=== PATIENT | male | born 1940 | race African-American/Black ===

== ENCOUNTER 2020-10-04 17:13 | Inpatient (IN) | payer OTHER ==
[2020-10-04 17:19] VITALS: BMI 24.0
[2020-10-04] MEDS ORDERED: SODIUM CHLORIDE 1,000 ML IV SCH (17:30)
[2020-10-04 18:06] LABS: BASO % 1.1 % (0-2.0); EOS % 0.2 % (0-4.5); HEMATOCRIT 31.5 % (35.4-49); HEMOGLOBIN 10.2 GM/dl (11.7-16.9); LYMPH % 18.1 % (8-40); MCH 28.2 pg (25.7-33.7); MCHC 32.3 g/dl (32.0-35.9); MEAN CELL VOLUME 87.3 fl (80-96); MEAN PLT VOLUME 8.1 fl (7.5-11.1); MONO % 12.4 % (3.8-10.2); NEUT % 68.2 % (42.8-82.8); PLATELET COUNT 236 K/MM3 (134-434); RBC 3.61 M/mm3 (4.00-5.60); RDW 15.2 % (11.9-15.9); WHITE BLOOD COUNT 6.2 K/mm3 (4.0-10.8)
[2020-10-04 18:07] LABS: ACTIVATED PTT 29.6 SECONDS (25.2-36.5)
[2020-10-04 18:12] LABS: INR 1.2 (0.82-1.09); PROTHROMBIN TIME (PATIENT) 13.3 SEC (10.2-13.0)
[2020-10-04 18:17] LABS: ALBUMIN 3.1 g/dl (3.4-5.0); BILIRUBIN,TOTAL 0.7 mg/dl (0.2-1); CALCIUM 8.6 mg/dl (8.5-10); CREATININE 1.1 mg/dl (0.55-1.3); MAGNESIUM 2.1 mg/dL (1.8-2.4); POTASSIUM 4.1 mmol/L (3.5-5.1); TOT PROT 6.3 g/dl (6.4-8.2)
[2020-10-04] MEDS ORDERED: LORazepam 2 MG/ML SDV VIAL IVPUSH ONE (22:49)
[2020-10-05 05:51] LABS: BASO % 0.6 % (0-2.0); EOS % 0.7 % (0-4.5); HEMATOCRIT 30.5 % (35.4-49); MCH 27.9 pg (25.7-33.7); MCHC 32.7 g/dl (32.0-35.9); MEAN CELL VOLUME 85.3 fl (80-96); MEAN PLT VOLUME 7.9 fl (7.5-11.1); MONO % 11.1 % (3.8-10.2); NEUT % 62.6 % (42.8-82.8); PLATELET COUNT 230 K/MM3 (134-434); RBC 3.58 M/mm3 (4.00-5.60); RDW 15.8 % (11.9-15.9); WHITE BLOOD COUNT 4.8 K/mm3 (4.0-10.0)
[2020-10-05 06:04] LABS: ALBUMIN 2.6 g/dl (3.4-5.0); CALCIUM 8.3 mg/dL (8.5-10.1)
[2020-10-05 06:05] LABS: BLOOD UREA NITROGEN 18.7 mg/dL (7-18)
[2020-10-05 06:07] LABS: CREATININE 0.9 mg/dL (0.55-1.3)
[2020-10-05 06:09] LABS: TOT PROT 5.7 g/dl (6.4-8.2)
[2020-10-05 06:10] LABS: BILIRUBIN,TOTAL 0.6 mg/dL (0.2-1)
[2020-10-05] MEDS ORDERED: HALOPERIDOL LACTATE 5 MG/ML IM PRN (19:23)
[2020-10-05] MEDS: MIRTAZAPINE 15 MG TABLET (FP) PO SCH (22:54)
[2020-10-05] MEDS: RIVASTIGMINE TARTRATE 3 MG CAPSULE PO SCH (22:54)
[2020-10-05] MEDS ORDERED: LORazepam 2 MG/ML SDV VIAL IVPUSH ONE (23:20)
[2020-10-06 08:24] LABS: ALBUMIN 2.6 g/dl (3.4-5.0); BILIRUBIN,TOTAL 0.7 mg/dl (0.2-1); CALCIUM 8.1 mg/dl (8.5-10); CREATININE 0.8 mg/dl (0.55-1.3); MAGNESIUM 2.1 mg/dL (1.8-2.4); POTASSIUM 3.9 mmol/L (3.5-5.1); TOT PROT 5.7 g/dl (6.4-8.2)
[2020-10-06] MEDS ORDERED: PT OWN MED DRAWER 7, Y5N ONE ×2 (09:02→21:43)
[2020-10-06] MEDS ORDERED: PATIENT'S OWN MEDICATION (NON-FORMULARY) (Rivastigmine 1 EACH Patch.Td24) TD SCH (10:00)
[2020-10-06] MEDS: RIVASTIGMINE TARTRATE 3 MG CAPSULE PO SCH ×2 (11:28→21:44)
[2020-10-06] MEDS: MIRTAZAPINE 15 MG TABLET (FP) PO SCH (21:44)
[2020-10-07] MEDS ORDERED: LORazepam 2 MG/ML SDV VIAL IVPUSH ONE (04:23)
[2020-10-07 08:30] LABS: ALBUMIN 2.6 g/dl (3.4-5.0); BILIRUBIN,TOTAL 0.7 mg/dl (0.2-1); CALCIUM 8.3 mg/dl (8.5-10); CREATININE 0.8 mg/dl (0.55-1.3); MAGNESIUM 2.2 mg/dL (1.8-2.4); POTASSIUM 4.1 mmol/L (3.5-5.1); TOT PROT 5.8 g/dl (6.4-8.2)
[2020-10-07 08:37] LABS: BASO % 0.9 % (0-2.0); EOS % 1.8 % (0-4.5); HEMATOCRIT 35.5 % (35.4-49); HEMOGLOBIN 11.3 GM/dl (11.7-16.9); LYMPH % 20.8 % (8-40); MCH 27.9 pg (25.7-33.7); MCHC 31.9 g/dl (32.0-35.9); MEAN CELL VOLUME 87.5 fl (80-96); MEAN PLT VOLUME 8.4 fl (7.5-11.1); MONO % 13.8 % (3.8-10.2); NEUT % 62.7 % (42.8-82.8); PLATELET COUNT 263 K/MM3 (134-434); RBC 4.06 M/mm3 (4.00-5.60); RDW 14.9 % (11.9-15.9); WHITE BLOOD COUNT 4.4 K/mm3 (4.0-10.8)
[2020-10-07] MEDS ORDERED: PT OWN MED DRAWER 7, Y5N ONE ×2 (08:49→22:18)
[2020-10-07] MEDS: RIVASTIGMINE TARTRATE 3 MG CAPSULE PO SCH ×2 (10:13→22:18)
[2020-10-07] MEDS: MIRTAZAPINE 15 MG TABLET (FP) PO SCH (22:14)
[2020-10-08 07:42] VITALS: BP 119/99; PULSE 57; TEMP 98.1
[2020-10-08] MEDS ORDERED: PT OWN MED DRAWER 7, Y5N ONE (09:21)
[2020-10-08] MEDS: RIVASTIGMINE TARTRATE 3 MG CAPSULE PO SCH (09:51)
== END 2020-10-08 11:30 | disposition home or self-care (01) | DRG 86 ==
LOC: FER 17:13 → FM/S 23:05 → UNDOADMIN 23:35 → FM/S 23:35
PROVIDERS: ADMIT Internal Medicine; ATTEND Nurse Practitioner Acute Care
DX: S06.5X0A Traumatic subdural hemorrhage without loss of consciousness, initial encounter (principal); F02.81 Dementia in other diseases classified elsewhere, unspecified severity, with behavioral disturbance; G30.9 Alzheimer's disease, unspecified; R26.9 Unspecified abnormalities of gait and mobility; W19.XXXA Unspecified fall, initial encounter; Y93.9 Activity, unspecified; Y92.9 Unspecified place or not applicable; Y99.8 Other external cause status
CPT/HCPCS: 36415; 70450-TC; 70460-TC; 71045-TC-FY; 80053; 80061; 82550; 82553; 83036; 83721; 83735; 84484; 85025; 85610; 85651; 85730; 86850; 86900; 86901; 93005; 97116-GP; 97162-GP; 99285-25; C9803; Q9967; U0003

== ENCOUNTER 2020-11-03 15:59 | Inpatient (IN) | payer OTHER ==
[2020-11-03] MEDS ORDERED: SODIUM CHLORIDE 1,000 ML IV STA ×2 (16:30→17:34)
[2020-11-03 16:56] LABS: BASO % 0.6 % (0-2.0); EOS % 0.6 % (0-4.5); HEMATOCRIT 38.9 % (35.4-49); HEMOGLOBIN 12.1 GM/dl (11.7-16.9); LYMPH % 15.9 % (8-40); MCH 26.8 pg (25.7-33.7); MCHC 31.1 g/dl (32.0-35.9); MEAN CELL VOLUME 86.3 fl (80-96); MEAN PLT VOLUME 9.5 fl (7.5-11.1); MONO % 6.5 % (3.8-10.2); NEUT % 76.4 % (42.8-82.8); PLATELET COUNT 185 K/MM3 (134-434); RBC 4.51 M/mm3 (4.00-5.60); RDW 17.3 % (11.9-15.9); WHITE BLOOD COUNT 3.8 K/mm3 (4.0-10.8)
[2020-11-03 17:00] LABS: INR 1.16 (0.82-1.09); PROTHROMBIN TIME (PATIENT) 12.9 SEC (10.2-13.0)
[2020-11-03 17:06] LABS: ALBUMIN 3.2 g/dl (3.4-5.0); BILIRUBIN,TOTAL 0.9 mg/dl (0.2-1); CALCIUM 9.1 mg/dl (8.5-10); CREATININE 0.9 mg/dl (0.55-1.3); TOT PROT 7.1 g/dl (6.4-8.2)
[2020-11-03 17:10] LABS: POTASSIUM 4.8 mmol/L (3.5-5.1)
[2020-11-03] MEDS ORDERED: VANCOMYCIN 1 GM in D5W (PRE-DOCKED) 1,000 MG/250 ML IVPB ONE (17:24)
[2020-11-03] MEDS ORDERED: PIPERACILLIN/TAZOB 3.375 GM 3.375 GM in DEXTROSE 5%-WATER - 50 ML IVPB ONE (17:27)
[2020-11-03] MEDS ORDERED: VANCOMYCIN 1,000 MG VIAL (RESTRICTED TO ID ONLY) ONE (17:33)
[2020-11-03] MEDS ORDERED: PIPERACILLIN/TAZOBACTAM 3.375 GM VIAL IVPB ONE (18:21)
[2020-11-04] MEDS: SODIUM CHLORIDE 1,000 ML IV SCH (00:30)
[2020-11-04] MEDS ORDERED: DEXTROSE 5%-WATER - 50 ML IVPB ONE ×3 (01:54→17:46)
[2020-11-04] MEDS ORDERED: PIPERACILLIN/TAZOBACTAM 3.375 GM VIAL IVPB ONE ×3 (01:54→17:46)
[2020-11-04] MEDS ORDERED: PIPERACILLIN/TAZOB 3.375 GM 3.375 GM in DEXTROSE 5%-WATER - 50 ML IVPB SCH (02:00)
[2020-11-04] MEDS ORDERED: VANCOMYCIN 1 GRAM (PRE-DOCKED) 1,000 MG/250 ML BAG IVPB SCH (05:30)
[2020-11-04] MEDS: VANCOMYCIN 1 GRAM (PRE-DOCKED) 1,000 MG/250 ML BAG IVPB SCH ×2 (06:54→17:56)
[2020-11-04 07:30] LABS: BASO % 0.2 % (0-2.0); EOS % 0.4 % (0-4.5); HEMATOCRIT 31.8 % (35.4-49); HEMOGLOBIN 10.6 GM/dL (11.7-16.9); LYMPH % 12.7 % (8-40); MCH 28.1 pg (25.7-33.7); MCHC 33.3 g/dl (32.0-35.9); MEAN CELL VOLUME 84.3 fl (80-96); MEAN PLT VOLUME 8.7 fl (7.5-11.1); MONO % 11.4 % (3.8-10.2); NEUT % 75.3 % (42.8-82.8); PLATELET COUNT 167 K/MM3 (134-434); RBC 3.77 M/mm3 (4.00-5.60); RDW 17.4 % (11.9-15.9); WHITE BLOOD COUNT 4.2 K/mm3 (4.0-10.0)
[2020-11-04 07:46] LABS: POTASSIUM 4.1 mmol/L (3.5-5.1)
[2020-11-04 07:48] LABS: CALCIUM 8.3 mg/dL (8.5-10.1)
[2020-11-04 07:49] LABS: ALBUMIN 2.5 g/dl (3.4-5.0); BLOOD UREA NITROGEN 20.6 mg/dL (7-18); MAGNESIUM 1.9 mg/dL (1.8-2.4)
[2020-11-04 07:52] LABS: PHOSPHOROUS 3.2 mg/dL (2.5-4.9)
[2020-11-04 07:54] LABS: BILIRUBIN,TOTAL 0.7 mg/dL (0.2-1)
[2020-11-04 09:22] LABS: ERYTHROCYTE SEDIMENTATION RATE 28 mm/hr (0-20)
[2020-11-04] MEDS ORDERED: ENOXAPARIN NA (PORCINE) 40 MG/0.4 ML DISP.SYRIN SQ SCH (10:00)
[2020-11-04] MEDS: PIPERACILLIN/TAZOB 3.375 GM 3.375 GM in DEXTROSE 5%-WATER - 50 ML IVPB SCH ×2 (10:43→17:51)
[2020-11-04] MEDS: MUPIROCIN 2% TOPICAL OINTMENT FOR DECOLONIZATION NS SCH ×2 (10:44→22:33)
[2020-11-04] MEDS ORDERED: LORazepam 2 MG/ML SDV VIAL IVPB ONE (13:07)
[2020-11-04] MEDS ORDERED: LORazepam 2 MG/ML SDV VIAL IVPUSH ONE (15:28)
[2020-11-04] MEDS ORDERED: PT OWN MED DRAWER 7, Y5N ONE (17:45)
[2020-11-04] MEDS: SODIUM CHLORIDE 0.45% 1,000 ML IV SCH (21:02)
[2020-11-04] MEDS: CHLORHEXIDINE GLUCONATE 4% CLEANSER FOR DECOLONIZATION TP SCH (22:33)
[2020-11-05] MEDS ORDERED: PIPERACILLIN/TAZOB 3.375 GM 3.375 GM in DEXTROSE 5%-WATER - 50 ML IVPB SCH (02:00)
[2020-11-05] MEDS: SODIUM CHLORIDE 1,000 ML IV SCH ×2 (02:37→18:09)
[2020-11-05] MEDS ORDERED: DEXTROSE 5%-WATER - 50 ML IVPB ONE ×3 (02:39→17:59)
[2020-11-05] MEDS ORDERED: PIPERACILLIN/TAZOBACTAM 3.375 GM VIAL IVPB ONE ×3 (02:39→17:59)
[2020-11-05] MEDS: PIPERACILLIN/TAZOB 3.375 GM 3.375 GM in DEXTROSE 5%-WATER - 50 ML IVPB SCH ×3 (03:07→18:14)
[2020-11-05 06:36] LABS: HEMATOCRIT 35.2 % (35.4-49); HEMOGLOBIN 11.5 GM/dL (11.7-16.9); MCH 27.7 pg (25.7-33.7); MCHC 32.8 g/dl (32.0-35.9); MEAN CELL VOLUME 84.6 fl (80-96); MEAN PLT VOLUME 9.5 fl (7.5-11.1); PLATELET COUNT 150 K/MM3 (134-434); RBC 4.16 M/mm3 (4.00-5.60); RDW 17.7 % (11.9-15.9); WHITE BLOOD COUNT 5.1 K/mm3 (4.0-10.0)
[2020-11-05 06:59] LABS: ALBUMIN 2.5 g/dl (3.4-5.0); BLOOD UREA NITROGEN 19.3 mg/dL (7-18); CALCIUM 8.4 mg/dL (8.5-10.1)
[2020-11-05 07:03] LABS: CREATININE 1.2 mg/dL (0.55-1.3)
[2020-11-05 07:04] LABS: BILIRUBIN,TOTAL 0.8 mg/dL (0.2-1); TOT PROT 6.1 g/dl (6.4-8.2)
[2020-11-05] MEDS ORDERED: VANCOMYCIN/WATER 1,250 MG/250 ML BAG IVPB SCH (10:00)
[2020-11-05] MEDS ORDERED: LIDOCAINE 1%/EPI 1:100000 (50 ML MULTI DOSE VIAL) ONE (10:13)
[2020-11-05] MEDS ORDERED: GENTAMICIN SO4 80 MG/2 ML VIAL ONE (10:13)
[2020-11-05] MEDS ORDERED: PT OWN MED DRAWER 7, Y5N ONE ×2 (10:16→17:59)
[2020-11-05] MEDS ORDERED: THROMBIN (BOVINE) 20,000 UNIT VIAL TP ONE (10:26)
[2020-11-05] MEDS: SODIUM CHLORIDE 0.45% 1,000 ML IV SCH (10:26)
[2020-11-05] MEDS ORDERED: PROPOFOL 20 ML ONE ×2 (12:21→12:51)
[2020-11-05] MEDS ORDERED: GLYCOPYRROLATE 0.2 MG/1 ML VIAL ONE ×2 (12:21→13:27)
[2020-11-05] MEDS ORDERED: ROCURONIUM BROMIDE 50 MG/5 ML SYRINGE ONE (12:21)
[2020-11-05] MEDS ORDERED: EPHEDRINE SULFATE/0.9% NACL/PF 50 MG/10 ML SYRINGE NR ONE (12:24)
[2020-11-05] MEDS ORDERED: ceFAZolin SODIUM 1 GM VIAL IVPB ONE (12:35)
[2020-11-05] MEDS ORDERED: LIDOCAINE 1%/EPI 1:100000 (20 ML MULTI DOSE VIAL) IJ ONE (12:40)
[2020-11-05] MEDS ORDERED: NEOSTIGMINE METHYLSULFATE 0.5 MG/1 ML - 10 ML MDV ONE (13:02)
[2020-11-05] MEDS ORDERED: ceFAZolin SODIUM 1 GM VIAL ONE (13:27)
[2020-11-05] MEDS ORDERED: ONDANSETRON 4 MG/2 ML VIAL IVPUSH PRN (13:28)
[2020-11-05] MEDS: DOCUSATE SODIUM 100 MG CAPSULE (FP) PO SCH (15:04)
[2020-11-05] MEDS: DEXAMETHASONE SOD PHOSPHATE 4 MG/1 ML VIAL IVPUSH SCH ×2 (15:06→21:07)
[2020-11-05] MEDS: CEFAZOLIN 1 GM/D5W 1 GM/50 ML BAG IVPB SCH (18:08)
[2020-11-05] MEDS: MUPIROCIN 2% TOPICAL OINTMENT FOR DECOLONIZATION NS SCH (18:18)
[2020-11-05] MEDS: FOSPHENYTOIN SODIUM 100 MG/2 ML VIAL IVPB SCH (21:07)
[2020-11-06] MEDS ORDERED: DEXTROSE 5%-WATER - 50 ML IVPB ONE (02:18)
[2020-11-06] MEDS ORDERED: PIPERACILLIN/TAZOBACTAM 3.375 GM VIAL IVPB ONE (02:18)
[2020-11-06] MEDS: DOCUSATE SODIUM 100 MG CAPSULE (FP) PO SCH ×3 (02:22→21:02)
[2020-11-06] MEDS: DEXAMETHASONE SOD PHOSPHATE 4 MG/1 ML VIAL IVPUSH SCH ×4 (02:37→21:02)
[2020-11-06] MEDS: FOSPHENYTOIN SODIUM 100 MG/2 ML VIAL IVPB SCH ×3 (02:37→17:00)
[2020-11-06] MEDS: MUPIROCIN 2% TOPICAL OINTMENT FOR DECOLONIZATION NS SCH ×3 (02:39→21:02)
[2020-11-06] MEDS: CHLORHEXIDINE GLUCONATE 4% CLEANSER FOR DECOLONIZATION TP SCH ×2 (02:39→21:02)
[2020-11-06 07:06] LABS: HEMATOCRIT 34.6 % (35.4-49); HEMOGLOBIN 11.4 GM/dL (11.7-16.9); MCH 27.6 pg (25.7-33.7); MCHC 32.9 g/dl (32.0-35.9); MEAN PLT VOLUME 9.3 fl (7.5-11.1); PLATELET COUNT 143 K/MM3 (134-434); RBC 4.12 M/mm3 (4.00-5.60); RDW 17.5 % (11.9-15.9); WHITE BLOOD COUNT 6.8 K/mm3 (4.0-10.0)
[2020-11-06 07:17] LABS: POTASSIUM 4.7 mmol/L (3.5-5.1)
[2020-11-06 07:22] LABS: BLOOD UREA NITROGEN 17.5 mg/dL (7-18); CALCIUM 8.4 mg/dL (8.5-10.1)
[2020-11-06 07:25] LABS: CREATININE 1.3 mg/dL (0.55-1.3)
[2020-11-06] MEDS: CEFAZOLIN 1 GM/D5W 1 GM/50 ML BAG IVPB SCH (11:01)
[2020-11-06] MEDS ORDERED: PT OWN MED DRAWER 7, Y5N ONE ×2 (11:50→14:32)
[2020-11-06] MEDS: SODIUM CHLORIDE 1,000 ML IV SCH (18:38)
[2020-11-07] MEDS: FOSPHENYTOIN SODIUM 100 MG/2 ML VIAL IVPB SCH ×2 (02:04→10:39)
[2020-11-07] MEDS: DEXAMETHASONE SOD PHOSPHATE 4 MG/1 ML VIAL IVPUSH SCH ×4 (02:05→22:59)
[2020-11-07] MEDS: DOCUSATE SODIUM 100 MG CAPSULE (FP) PO SCH ×4 (06:33→22:59)
[2020-11-07 08:09] LABS: HEMOGLOBIN 11.5 GM/dL (11.7-16.9); MCH 27.6 pg (25.7-33.7); MCHC 31.9 g/dl (32.0-35.9); MEAN CELL VOLUME 86.5 fl (80-96); MEAN PLT VOLUME 10.4 fl (7.5-11.1); PLATELET COUNT 128 K/MM3 (134-434); RBC 4.16 M/mm3 (4.00-5.60); RDW 17.6 % (11.9-15.9); WHITE BLOOD COUNT 8.1 K/mm3 (4.0-10.0)
[2020-11-07 08:39] LABS: BLOOD UREA NITROGEN 23.4 mg/dL (7-18)
[2020-11-07 08:40] LABS: MAGNESIUM 2.4 mg/dL (1.8-2.4)
[2020-11-07 08:42] LABS: CREATININE 1.1 mg/dL (0.55-1.3); PHOSPHOROUS 4.1 mg/dL (2.5-4.9)
[2020-11-07] MEDS ORDERED: PT OWN MED DRAWER 7, Y5N ONE (10:22)
[2020-11-07] MEDS: MUPIROCIN 2% TOPICAL OINTMENT FOR DECOLONIZATION NS SCH (10:39)
[2020-11-07] MEDS: CEFAZOLIN 1 GM/D5W 1 GM/50 ML BAG IVPB SCH (18:01)
[2020-11-07] MEDS ORDERED: ONDANSETRON 4 MG/2 ML VIAL IVPUSH PRN (18:58)
[2020-11-07] MEDS ORDERED: MUPIROCIN 2% TOPICAL OINTMENT FOR DECOLONIZATION NS SCH (22:00)
[2020-11-07] MEDS ORDERED: CHLORHEXIDINE GLUCONATE 4% CLEANSER FOR DECOLONIZATION TP SCH (22:00)
[2020-11-07] MEDS: SODIUM CHLORIDE 1,000 ML IV SCH (22:59)
[2020-11-08] MEDS: FOSPHENYTOIN SODIUM 100 MG/2 ML VIAL IVPB SCH ×3 (02:17→19:47)
[2020-11-08] MEDS: DEXAMETHASONE SOD PHOSPHATE 4 MG/1 ML VIAL IVPUSH SCH ×4 (04:00→21:44)
[2020-11-08] MEDS: DOCUSATE SODIUM 100 MG CAPSULE (FP) PO SCH ×3 (06:24→21:45)
[2020-11-08 08:36] LABS: POTASSIUM 4.1 mmol/L (3.5-5.1)
[2020-11-08 08:42] LABS: BLOOD UREA NITROGEN 23.6 mg/dL (7-18); CALCIUM 8.5 mg/dL (8.5-10.1); CREATININE 0.9 mg/dL (0.55-1.3)
[2020-11-08 08:43] LABS: MAGNESIUM 2.1 mg/dL (1.8-2.4)
[2020-11-08 08:45] LABS: PHOSPHOROUS 2.3 mg/dL (2.5-4.9)
[2020-11-08] MEDS ORDERED: SODIUM PHOSPHATE - 15 MM in SODIUM CHLORIDE 250 ML IVPB ONE (13:17)
[2020-11-08 14:55] VITALS: BMI 23.8
[2020-11-08] MEDS: SODIUM CHLORIDE 1,000 ML IV SCH (19:47)
[2020-11-08] MEDS: MIRTAZAPINE 15 MG TABLET (FP) PO SCH (21:45)
[2020-11-09] MEDS: DEXAMETHASONE SOD PHOSPHATE 4 MG/1 ML VIAL IVPUSH SCH ×3 (03:00→21:08)
[2020-11-09] MEDS: FOSPHENYTOIN SODIUM 100 MG/2 ML VIAL IVPB SCH ×3 (04:00→17:04)
[2020-11-09] MEDS ORDERED: PT OWN MED DRAWER 7, Y5N ONE ×3 (04:26→16:50)
[2020-11-09] MEDS: DOCUSATE SODIUM 100 MG CAPSULE (FP) PO SCH ×3 (06:31→21:07)
[2020-11-09] MEDS: RIVASTIGMINE 9.5 MG/24 HOURS TRANSDERMAL PATCH TD SCH (09:38)
[2020-11-09] MEDS: ENOXAPARIN NA (PORCINE) 40 MG/0.4 ML DISP.SYRIN SQ SCH (09:39)
[2020-11-09] MEDS ORDERED: SODIUM PHOSPHATE - 30 MM in SODIUM CHLORIDE 500 ML IVPB ONE (11:00)
[2020-11-09 12:40] LABS: EOS % 0.1 % (0-4.5); HEMATOCRIT 34.6 % (35.4-49); HEMOGLOBIN 11.3 GM/dL (11.7-16.9); LYMPH % 7.8 % (8-40); MCH 27.6 pg (25.7-33.7); MCHC 32.6 g/dl (32.0-35.9); MEAN CELL VOLUME 84.7 fl (80-96); MEAN PLT VOLUME 9.3 fl (7.5-11.1); NEUT % 84.1 % (42.8-82.8); PLATELET COUNT 140 K/MM3 (134-434); RBC 4.09 M/mm3 (4.00-5.60); RDW 17.2 % (11.9-15.9); WHITE BLOOD COUNT 5.7 K/mm3 (4.0-10.0)
[2020-11-09 13:08] LABS: CALCIUM 8.1 mg/dL (8.5-10.1)
[2020-11-09 13:09] LABS: ALBUMIN 2.3 g/dl (3.4-5.0); BLOOD UREA NITROGEN 22.5 mg/dL (7-18); MAGNESIUM 2.2 mg/dL (1.8-2.4)
[2020-11-09 13:12] LABS: CREATININE 0.9 mg/dL (0.55-1.3); PHOSPHOROUS 2.3 mg/dL (2.5-4.9)
[2020-11-09 13:13] LABS: BILIRUBIN,TOTAL 0.5 mg/dL (0.2-1); TOT PROT 5.8 g/dl (6.4-8.2)
[2020-11-09] MEDS: MIRTAZAPINE 15 MG TABLET (FP) PO SCH (21:08)
[2020-11-10] MEDS ORDERED: PT OWN MED DRAWER 7, Y5N ONE ×3 (01:30→09:40)
[2020-11-10] MEDS: FOSPHENYTOIN SODIUM 100 MG/2 ML VIAL IVPB SCH ×3 (01:51→17:12)
[2020-11-10] MEDS: DEXAMETHASONE SOD PHOSPHATE 4 MG/1 ML VIAL IVPUSH SCH ×2 (09:46→21:10)
[2020-11-10] MEDS: ENOXAPARIN NA (PORCINE) 40 MG/0.4 ML DISP.SYRIN SQ SCH (09:46)
[2020-11-10] MEDS: RIVASTIGMINE 9.5 MG/24 HOURS TRANSDERMAL PATCH TD SCH (09:47)
[2020-11-10] MEDS: DOCUSATE SODIUM 100 MG CAPSULE (FP) PO SCH ×2 (13:30→21:08)
[2020-11-10 14:56] LABS: BASO % 0.1 % (0-2.0); EOS % 0.1 % (0-4.5); HEMATOCRIT 35.9 % (35.4-49); HEMOGLOBIN 11.6 GM/dL (11.7-16.9); LYMPH % 9.8 % (8-40); MCH 27.5 pg (25.7-33.7); MCHC 32.2 g/dl (32.0-35.9); MEAN CELL VOLUME 85.6 fl (80-96); MEAN PLT VOLUME 9.6 fl (7.5-11.1); MONO % 7.2 % (3.8-10.2); NEUT % 82.8 % (42.8-82.8); PLATELET COUNT 162 K/MM3 (134-434); RDW 17.4 % (11.9-15.9); WHITE BLOOD COUNT 6.1 K/mm3 (4.0-10.0)
[2020-11-10 15:17] LABS: POTASSIUM 4.2 mmol/L (3.5-5.1)
[2020-11-10 15:18] LABS: ALBUMIN 2.3 g/dl (3.4-5.0); CALCIUM 8.5 mg/dL (8.5-10.1)
[2020-11-10 15:19] LABS: BLOOD UREA NITROGEN 23.5 mg/dL (7-18); MAGNESIUM 2.2 mg/dL (1.8-2.4)
[2020-11-10 15:22] LABS: CREATININE 0.9 mg/dL (0.55-1.3); PHOSPHOROUS 2.4 mg/dL (2.5-4.9)
[2020-11-10 15:23] LABS: BILIRUBIN,TOTAL 0.4 mg/dL (0.2-1); TOT PROT 6.1 g/dl (6.4-8.2)
[2020-11-10] MEDS ORDERED: POTASSIUM PHOSPHATE 30 MM in SODIUM CHLORIDE 250 ML IVPB ONE (16:12)
[2020-11-10] MEDS ORDERED: NAPH,MB-DB/K PH,MBDB POWDER PACKET PO ONE (18:31)
[2020-11-10] MEDS: MIRTAZAPINE 15 MG TABLET (FP) PO SCH (21:09)
[2020-11-11] MEDS: FOSPHENYTOIN SODIUM 100 MG/2 ML VIAL IVPB SCH (03:16)
[2020-11-11] MEDS: DOCUSATE SODIUM 100 MG CAPSULE (FP) PO SCH ×3 (06:11→21:28)
[2020-11-11 07:03] LABS: HEMATOCRIT 34.7 % (35.4-49); HEMOGLOBIN 11.4 GM/dL (11.7-16.9); MCH 27.9 pg (25.7-33.7); MCHC 32.9 g/dl (32.0-35.9); MEAN PLT VOLUME 8.6 fl (7.5-11.1); PLATELET COUNT 168 K/MM3 (134-434); RBC 4.09 M/mm3 (4.00-5.60); RDW 16.9 % (11.9-15.9); WHITE BLOOD COUNT 6.4 K/mm3 (4.0-10.0)
[2020-11-11 07:37] LABS: POTASSIUM 4.3 mmol/L (3.5-5.1)
[2020-11-11 07:38] LABS: BLOOD UREA NITROGEN 23.7 mg/dL (7-18)
[2020-11-11 07:42] LABS: CREATININE 0.8 mg/dL (0.55-1.3)
[2020-11-11] MEDS: RIVASTIGMINE 9.5 MG/24 HOURS TRANSDERMAL PATCH TD SCH (10:54)
[2020-11-11] MEDS: ENOXAPARIN NA (PORCINE) 40 MG/0.4 ML DISP.SYRIN SQ SCH (10:54)
[2020-11-11] MEDS: DEXAMETHASONE SOD PHOSPHATE 4 MG/1 ML VIAL IVPUSH SCH ×2 (10:54→21:18)
[2020-11-11] MEDS: MIRTAZAPINE 15 MG TABLET (FP) PO SCH (21:18)
[2020-11-12] MEDS: DOCUSATE SODIUM 100 MG CAPSULE (FP) PO SCH ×4 (06:00→21:58)
[2020-11-12 07:37] LABS: HEMATOCRIT 37.1 % (35.4-49); HEMOGLOBIN 12.2 GM/dL (11.7-16.9); MCH 28.1 pg (25.7-33.7); MEAN CELL VOLUME 85.1 fl (80-96); MEAN PLT VOLUME 8.9 fl (7.5-11.1); PLATELET COUNT 220 K/MM3 (134-434); RBC 4.36 M/mm3 (4.00-5.60); RDW 17.1 % (11.9-15.9)
[2020-11-12 08:00] LABS: POTASSIUM 4.7 mmol/L (3.5-5.1)
[2020-11-12 08:19] LABS: BLOOD UREA NITROGEN 26.3 mg/dL (7-18); CALCIUM 8.7 mg/dL (8.5-10.1); CREATININE 0.8 mg/dL (0.55-1.3)
[2020-11-12] MEDS ORDERED: PT OWN MED DRAWER 7, Y5N ONE ×2 (08:37→09:44)
[2020-11-12] MEDS: DEXAMETHASONE SOD PHOSPHATE 4 MG/1 ML VIAL IVPUSH SCH ×2 (10:02→22:10)
[2020-11-12] MEDS: ENOXAPARIN NA (PORCINE) 40 MG/0.4 ML DISP.SYRIN SQ SCH (10:02)
[2020-11-12] MEDS: RIVASTIGMINE 9.5 MG/24 HOURS TRANSDERMAL PATCH TD SCH (10:02)
[2020-11-12] MEDS: MIRTAZAPINE 15 MG TABLET (FP) PO SCH (22:10)
[2020-11-13 08:00] LABS: HEMATOCRIT 37.7 % (35.4-49); HEMOGLOBIN 12.2 GM/dL (11.7-16.9); MCH 27.7 pg (25.7-33.7); MCHC 32.4 g/dl (32.0-35.9); MEAN CELL VOLUME 85.4 fl (80-96); MEAN PLT VOLUME 8.7 fl (7.5-11.1); PLATELET COUNT 281 K/MM3 (134-434); RBC 4.42 M/mm3 (4.00-5.60); RDW 17.4 % (11.9-15.9); WHITE BLOOD COUNT 7.3 K/mm3 (4.0-10.0)
[2020-11-13 08:38] LABS: POTASSIUM 4.7 mmol/L (3.5-5.1)
[2020-11-13 08:50] LABS: CALCIUM 9.1 mg/dL (8.5-10.1)
[2020-11-13 08:53] LABS: CREATININE 0.9 mg/dL (0.55-1.3)
[2020-11-13] MEDS ORDERED: PT OWN MED DRAWER 7, Y5N ONE (09:18)
[2020-11-13] MEDS: AMINO ACIDS/PROTEIN HYDROLYS 30 ML LIQUID.PKT PO SCH (10:15)
[2020-11-13] MEDS: MULTIVIT-MINERALS ORAL LIQUID PO SCH (10:15)
[2020-11-13] MEDS: RIVASTIGMINE 9.5 MG/24 HOURS TRANSDERMAL PATCH TD SCH (10:15)
[2020-11-13] MEDS: ENOXAPARIN NA (PORCINE) 40 MG/0.4 ML DISP.SYRIN SQ SCH ×2 (10:16→10:32)
[2020-11-13] MEDS: DEXAMETHASONE SOD PHOSPHATE 4 MG/1 ML VIAL IVPUSH SCH ×2 (10:16→23:03)
[2020-11-13] MEDS: DOCUSATE SODIUM 100 MG CAPSULE (FP) PO SCH ×4 (13:28→23:12)
[2020-11-13] MEDS: MIRTAZAPINE 15 MG TABLET (FP) PO SCH (23:04)
[2020-11-14] MEDS: DOCUSATE SODIUM 100 MG CAPSULE (FP) PO SCH ×3 (05:46→22:09)
[2020-11-14 07:19] LABS: HEMATOCRIT 37.3 % (35.4-49); HEMOGLOBIN 12.1 GM/dL (11.7-16.9); MCH 27.7 pg (25.7-33.7); MCHC 32.5 g/dl (32.0-35.9); MEAN CELL VOLUME 85.1 fl (80-96); MEAN PLT VOLUME 8.4 fl (7.5-11.1); PLATELET COUNT 313 K/MM3 (134-434); RBC 4.38 M/mm3 (4.00-5.60); RDW 17.3 % (11.9-15.9); WHITE BLOOD COUNT 6.1 K/mm3 (4.0-10.0)
[2020-11-14 07:53] LABS: POTASSIUM 4.7 mmol/L (3.5-5.1)
[2020-11-14 07:54] LABS: CALCIUM 8.5 mg/dL (8.5-10.1)
[2020-11-14 07:58] LABS: CREATININE 0.9 mg/dL (0.55-1.3)
[2020-11-14] MEDS: AMINO ACIDS/PROTEIN HYDROLYS 30 ML LIQUID.PKT PO SCH (09:00)
[2020-11-14] MEDS ORDERED: PT OWN MED DRAWER 7, Y5N ONE (09:50)
[2020-11-14] MEDS: RIVASTIGMINE 9.5 MG/24 HOURS TRANSDERMAL PATCH TD SCH (10:39)
[2020-11-14] MEDS: MULTIVIT-MINERALS ORAL LIQUID PO SCH (10:39)
[2020-11-14] MEDS: DEXAMETHASONE SOD PHOSPHATE 4 MG/1 ML VIAL IVPUSH SCH ×2 (10:39→22:09)
[2020-11-14] MEDS: TAMSULOSIN HCL 0.4 MG CAP PO SCH (14:11)
[2020-11-14] MEDS: MIRTAZAPINE 15 MG TABLET (FP) PO SCH (22:09)
[2020-11-15] MEDS: DOCUSATE SODIUM 100 MG CAPSULE (FP) PO SCH ×3 (06:14→21:32)
[2020-11-15 08:43] LABS: BASO % 0.5 % (0-2.0); HEMATOCRIT 35.4 % (35.4-49); HEMOGLOBIN 11.6 GM/dL (11.7-16.9); LYMPH % 14.5 % (8-40); MCH 28.1 pg (25.7-33.7); MCHC 32.8 g/dl (32.0-35.9); MEAN CELL VOLUME 85.9 fl (80-96); MEAN PLT VOLUME 8.6 fl (7.5-11.1); MONO % 5.9 % (3.8-10.2); NEUT % 79.1 % (42.8-82.8); PLATELET COUNT 322 K/MM3 (134-434); RBC 4.12 M/mm3 (4.00-5.60); RDW 17.5 % (11.9-15.9); WHITE BLOOD COUNT 6.2 K/mm3 (4.0-10.0)
[2020-11-15] MEDS: AMINO ACIDS/PROTEIN HYDROLYS 30 ML LIQUID.PKT PO SCH (08:44)
[2020-11-15 08:55] LABS: POTASSIUM 4.5 mmol/L (3.5-5.1)
[2020-11-15 09:01] LABS: CALCIUM 8.7 mg/dL (8.5-10.1)
[2020-11-15 09:02] LABS: ALBUMIN 2.7 g/dl (3.4-5.0); MAGNESIUM 2.2 mg/dL (1.8-2.4)
[2020-11-15 09:04] LABS: CREATININE 0.9 mg/dL (0.55-1.3)
[2020-11-15 09:05] LABS: BILIRUBIN,TOTAL 0.4 mg/dL (0.2-1); PHOSPHOROUS 3.3 mg/dL (2.5-4.9); TOT PROT 6.5 g/dl (6.4-8.2)
[2020-11-15] MEDS: DEXAMETHASONE SOD PHOSPHATE 4 MG/1 ML VIAL IVPUSH SCH (09:18)
[2020-11-15] MEDS: TAMSULOSIN HCL 0.4 MG CAP PO SCH (09:18)
[2020-11-15] MEDS ORDERED: PT OWN MED DRAWER 7, Y5N ONE ×2 (09:19→10:04)
[2020-11-15] MEDS: MULTIVIT-MINERALS ORAL LIQUID PO SCH (09:20)
[2020-11-15] MEDS: MIRTAZAPINE 15 MG TABLET (FP) PO SCH (21:32)
[2020-11-16] MEDS: DOCUSATE SODIUM 100 MG CAPSULE (FP) PO SCH ×3 (06:11→21:28)
[2020-11-16 07:41] LABS: BASO % 0.4 % (0-2.0); EOS % 0.7 % (0-4.5); HEMATOCRIT 35.6 % (35.4-49); HEMOGLOBIN 11.6 GM/dL (11.7-16.9); LYMPH % 21.1 % (8-40); MCH 28.3 pg (25.7-33.7); MCHC 32.7 g/dl (32.0-35.9); MEAN CELL VOLUME 86.5 fl (80-96); MEAN PLT VOLUME 8.1 fl (7.5-11.1); MONO % 9.8 % (3.8-10.2); PLATELET COUNT 317 K/MM3 (134-434); RBC 4.11 M/mm3 (4.00-5.60); RDW 17.6 % (11.9-15.9); WHITE BLOOD COUNT 7.5 K/mm3 (4.0-10.0)
[2020-11-16 07:54] LABS: POTASSIUM 4.3 mmol/L (3.5-5.1)
[2020-11-16 08:01] LABS: ALBUMIN 2.6 g/dl (3.4-5.0); BLOOD UREA NITROGEN 29.3 mg/dL (7-18); CALCIUM 8.9 mg/dL (8.5-10.1)
[2020-11-16 08:02] LABS: MAGNESIUM 2.3 mg/dL (1.8-2.4)
[2020-11-16 08:04] LABS: CREATININE 0.8 mg/dL (0.55-1.3)
[2020-11-16 08:05] LABS: PHOSPHOROUS 2.9 mg/dL (2.5-4.9)
[2020-11-16 08:06] LABS: BILIRUBIN,TOTAL 0.2 mg/dL (0.2-1); TOT PROT 6.4 g/dl (6.4-8.2)
[2020-11-16] MEDS ORDERED: PT OWN MED DRAWER 7, Y5N ONE (08:39)
[2020-11-16] MEDS: AMINO ACIDS/PROTEIN HYDROLYS 30 ML LIQUID.PKT PO SCH (09:15)
[2020-11-16] MEDS ORDERED: HALOPERIDOL LACTATE 5 MG/ML IM ONE (09:43)
[2020-11-16] MEDS ORDERED: DEXAMETHASONE SOD PHOSPHATE 4 MG/1 ML VIAL IVPUSH ONE (10:00)
[2020-11-16] MEDS: MULTIVIT-MINERALS ORAL LIQUID PO SCH (10:01)
[2020-11-16] MEDS: TAMSULOSIN HCL 0.4 MG CAP PO SCH (10:01)
[2020-11-16] MEDS ORDERED: QUEtiapine FUMARATE 25 MG TABLET PO SCH ×2 (21:00)
[2020-11-16] MEDS: MIRTAZAPINE 15 MG TABLET (FP) PO SCH (21:28)
[2020-11-17] MEDS: DOCUSATE SODIUM 100 MG CAPSULE (FP) PO SCH ×2 (05:42→14:21)
[2020-11-17 08:49] LABS: BASO % 0.4 % (0-2.0); HEMATOCRIT 34.7 % (35.4-49); HEMOGLOBIN 11.5 GM/dL (11.7-16.9); LYMPH % 25.1 % (8-40); MCH 28.3 pg (25.7-33.7); MCHC 33.1 g/dl (32.0-35.9); MEAN CELL VOLUME 85.5 fl (80-96); MEAN PLT VOLUME 8.1 fl (7.5-11.1); MONO % 11.2 % (3.8-10.2); NEUT % 62.3 % (42.8-82.8); PLATELET COUNT 354 K/MM3 (134-434); RBC 4.06 M/mm3 (4.00-5.60); RDW 17.4 % (11.9-15.9); WHITE BLOOD COUNT 6.3 K/mm3 (4.0-10.0)
[2020-11-17 09:22] LABS: CALCIUM 8.8 mg/dL (8.5-10.1)
[2020-11-17 09:23] LABS: ALBUMIN 2.8 g/dl (3.4-5.0); BLOOD UREA NITROGEN 28.2 mg/dL (7-18); MAGNESIUM 2.2 mg/dL (1.8-2.4)
[2020-11-17 09:26] LABS: CREATININE 0.8 mg/dL (0.55-1.3); PHOSPHOROUS 3.1 mg/dL (2.5-4.9)
[2020-11-17 09:27] LABS: BILIRUBIN,TOTAL 0.3 mg/dL (0.2-1); TOT PROT 6.5 g/dl (6.4-8.2)
[2020-11-17 09:36] LABS: POTASSIUM 4.4 mmol/L (3.5-5.1)
[2020-11-17] MEDS ORDERED: DEXAMETHASONE SOD PHOSPHATE 4 MG/1 ML VIAL IVPUSH SCH (10:00)
[2020-11-17] MEDS ORDERED: DEXAMETHASONE 4 MG TABLET (FP) PO SCH ×2 (10:00)
[2020-11-17] MEDS: AMINO ACIDS/PROTEIN HYDROLYS 30 ML LIQUID.PKT PO SCH (11:02)
[2020-11-17] MEDS: TAMSULOSIN HCL 0.4 MG CAP PO SCH (11:03)
[2020-11-17] MEDS: MULTIVIT-MINERALS ORAL LIQUID PO SCH (11:08)
[2020-11-17 13:59] VITALS: BP 128/58; PULSE 56; TEMP 97.5
== END 2020-11-17 14:15 | DRG 25 ==
LOC: FER 15:59 → JICU 23:05 → J8W 11-07 15:12 → J4W 11-07 19:36
PROVIDERS: ADMIT Student in an Organized Health Care Education/Training Program; ATTEND Internal Medicine
PROC: 4A10X4G Monitoring of Central Nervous Electrical Activity, Intraoperative, External Approach (ICD-10-PCS; 2020-11-05)
PROC: 00940ZZ Drainage of Intracranial Subdural Space, Open Approach (ICD-10-PCS; principal; 2020-11-05 13:30)
DX: S06.5X0A Traumatic subdural hemorrhage without loss of consciousness, initial encounter (principal); G93.41 Metabolic encephalopathy; F03.91 Unspecified dementia, unspecified severity, with behavioral disturbance; R68.0 Hypothermia, not associated with low environmental temperature; R00.1 Bradycardia, unspecified; N40.0 Benign prostatic hyperplasia without lower urinary tract symptoms; R41.0 Disorientation, unspecified; I25.10 Atherosclerotic heart disease of native coronary artery without angina pectoris; R74.01 Elevation of levels of liver transaminase levels
CPT/HCPCS: 36415; 70450-TC; 70551-TC; 71045-TC-FY; 80048; 80053; 80185; 81003; 81015; 82024; 82533; 82550; 82728; 83605; 83735; 84100; 84146; 84443; 84484; 85025; 85027; 85610; 85651; 86140; 86850; 86900; 86901; 86922; 87040; 87086; 93005; 93010; 93970-TC; 95816; 97116-GP; 97162-GP; 99285-25; C9803; G0480; U0003